=== PATIENT | male | born 1980 | race Caucasian/White ===

== ENCOUNTER 2017-05-10 12:20 | Emergency (ER) | payer SELFPAY | END 2017-05-10 16:08 | disposition home or self-care (01) | LOC: D.ER 12:20 | DX: F41.9 Anxiety disorder, unspecified (principal); M79.661 Pain in right lower leg; J45.909 Unspecified asthma, uncomplicated; K21.9 Gastro-esophageal reflux disease without esophagitis; G47.30 Sleep apnea, unspecified ==

== ENCOUNTER 2017-05-12 18:19 | Emergency (ER) | payer SELFPAY | END 2017-05-12 20:45 | disposition home or self-care (01) | LOC: D.ER 18:19 | DX: J18.9 Pneumonia, unspecified organism (principal); I48.91 Unspecified atrial fibrillation; K21.9 Gastro-esophageal reflux disease without esophagitis; J45.909 Unspecified asthma, uncomplicated; G47.30 Sleep apnea, unspecified ==